=== PATIENT | male | born 1990 | race Caucasian/White ===

== ENCOUNTER 2020-03-15 23:02 | Emergency (ER) | payer MEDICAID, SELFPAY ==
[2020-03-15 23:12] VITALS: BP 143/95; PULSE 91; RESP 16; TEMP 36.3; O2SAT 97; BMI 29.0
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
--- NOTE | 2020-03-15 23:43 | PC.NURSE ---
PT TO X-RAY IN STRETCHER. PT TEARFUL AND REPEATING I ALMOST TONIGHT .
[2020-03-15] MEDS: Oxymetazoline HCl 0.05 % Nasal 15 ML SPRAY 2 SPRAY NOSTRIL-B (23:45)
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
[2020-03-16] MEDS: Acetaminophen 325 MG TABLET 650 MG PO (01:16)
== END 2020-03-16 01:25 | disposition home or self-care (01) ==
PROVIDERS: Emergency Provider Emergency Medicine
DX: S00.83XA Contusion of other part of head, initial encounter (principal); G50.1 Atypical facial pain; G44.309 Post-traumatic headache, unspecified, not intractable; M25.561 Pain in right knee; Y04.8XXA Assault by other bodily force, initial encounter; Y93.9 Activity, unspecified; Y92.9 Unspecified place or not applicable; Y99.9 Unspecified external cause status; F10.129 Alcohol abuse with intoxication, unspecified; Y90.9 Presence of alcohol in blood, level not specified
CPT/HCPCS: 70450; 70486; 73564; 99283; 99284